=== PATIENT | female | born 1980 | race Caucasian/White ===

== ENCOUNTER 2019-05-19 10:47 | Inpatient (IN) | payer BC, OTHER ==
[2019-05-16 11:48] VITALS: BMI 27.6
[2019-05-19] MEDS ORDERED: DEXAMETHASONE SOD PHOSPHATE/PF 10 MG/ML SDV ONE (12:57)
[2019-05-19] MEDS ORDERED: BUPIVACAINE HCL/PF 0.5% (5 MG/ML) 30 ML VIAL IJ ONE (12:58)
[2019-05-19] MEDS ORDERED: DEXAMETHASONE SOD PHOSPHATE 4 MG/1 ML VIAL ONE (13:21)
[2019-05-19] MEDS ORDERED: PROPOFOL 0 ML ONE (13:21)
[2019-05-19] MEDS ORDERED: MIDAZOLAM HCL 2 MG/2 ML SINGLE DOSE VIAL ONE ×3 (13:21→13:44)
[2019-05-19] MEDS ORDERED: ROCURONIUM BROMIDE 50 MG/5 ML SYRINGE ONE ×2 (13:22→13:56)
--- NOTE | 2019-05-19 13:31 | HP ---
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: Alzheimer's, CVA, Dementia, Migraine, Multiple Sclerosis, Peripheral Neuropathy, Parkinson's, Seizure, Syncope, TIA, Vertigo, Other Cardiovascular: No: AFIB, Aneurysm, Aortic Insufficiency, Aortic Stenosis, CAD, CHF, Deep Vein Thrombosis, HTN, Hyperlipdemia, AL, Mitral Insufficiency, Mitral Stenosis, Murmur, Pulmonary Hypertension, Other Pulmonary: No: Asthma, Bronchitis, Cancer, COPD, O2 Dependent, Pneumonia, Previously Intubated, Pulmonary Embolus, Pulmonary Fibrosis, Sleep Apnea, Other Gastrointestinal: No: Ascites, Cancer, Constipation, Crohn's Disease, Diverticulitis, Diverticulosis, Esophageal Varices, Gastritis, GERD, GI Bleed, Hemorrhoids, Hiatal Hernia, Inflamatory Bowel Disease, Irritable Bowel Disease, Pancreatitis, Peptic Ulcer Disease, Ulcerative Colitis, Other Hepatobiliary: No: Cirrhosis, Cholelithiasis, Cholecystitis, Choledocholithiasis , Hepatitis A, Hepatitis B, Hepatitis C, Other Renal/: No: Renal Failure, Renal Inusuff, BPH, Cancer, Hematuria, Hemodialysis , Neurogenic Bladder, Renal Calculi, UTI, Other Reproductive: No: Ectopic , Endometriosis, Fibroids, PID, Polycystic Ovary Syndrome, Postmenopausal, Other ...LMP: 04/30/19 ...: No Heme/Onc: No: Anemia, B12 Deficiency, Bleeding Disorder, Cancer, Current Chemotherapy, Current Radiation Therapy, Hemochromatosis, Hypercoaguable State, Myeloproliferative Synd, Sickle Cell Disease, Sickle Cell Trait, Thrombocytopenia, Other Infectious Disease: No: AIDS, C-Diff, Herpes Zoster, HIV, MRSA, STD's, Tuberculosis, VREF, Other Psych: No: Addictions, Anxiety, Bipolar, Depression, Panic, Psychosis, Schizophrenia, Other Musculoskeletal: No: Bursitis, Chronic low back pain, Hemiparesis, Hemiplegia, Osteoarthritis, Paraplegia, Other Rheumatology: No: Fibromyalgia, Gout, Lupus, Rheumatoid Arthritis, Sarcoidosis, Vasculitis, Other ENT: No: Allergic Rhinitis, Sinusitis, Other Endocrine: No: Mathieu's Disease, Lauren's Disease, Diabetes Insipidus, Diabetes Mellitus, Hyperparathyroidism, Hyperthyroidism, Hypothyroidism, Osteopenia, SIADH, Other Dermatology: No: Basal Cell, Cellulitis, Eczema, Melanoma, Psoriasis, Squamous Cell, Other - Past Surgical History Past Surgical History: No: None, AAA Repair, AICD, Amputation, Appendectomy, Arthrosocopy, AV Fistula/Graft, Bariatric Surgery, Breast Biopsy, Bypass, CABG, Carotid Endarterectomy, Cataract Removal, Cholecystectomy, Colectomy, Colonoscopy, Colostomy, Craniotomy, , Cystectomy, Hernia Repair, Hysterectomy, Ileal Conduit, Ileosotomy, Joint Replacement, Kidney Transplant, Laminectomy, Liver Transplant, Mastectomy, Nephrectomy, Oopherectomy, Orchiectomy, Permanent Pacemaker, Prostatectomy, Splenectomy, Stent, Thoracotomy , TURP, Tonsillectomy, Tubal Ligation, Upper Endoscopy, Valve Replacement, Vasectomy, Vein Stripping/Ligation - Advance Directives Advance Directives: Yes: Living Will - Smoking History Smoking history: Current some day smoker Have you smoked in the past 12 months: Yes Aproximately how many cigarettes per day: 4 - Alcohol/Substance Use Hx Alcohol Use: Yes (S) History of Substance Use: reports: None - Social History Usual Living Arrangement: Yes: Alone Do you think of yourself as: Straight/Heterosexual ADL: Independent History of Recent Travel: No Home Medications - Allergies Allergies/Adverse Reactions: Allergies Allergy/AdvReac Type Severity Reaction Status Date / Time No Known Allergies Allergy Verified 05/16/19 11:48 - Home Medications Home Medications: Ambulatory Orders Ibuprofen [Motrin -] 800 mg PO TID 05/16/19 Family Medical History Family History: Denies Review of Systems - Review of Systems Constitutional: reports: No Symptoms Eyes: reports: No Symptoms HENT: reports: No Symptoms Neck: reports: No Symptoms Cardiovascular: reports: No Symptoms Respiratory: reports: No Symptoms Gastrointestinal: reports: No Symptoms Genitourinary: reports: No Symptoms Breasts: reports: No Symptoms Reported Musculoskeletal: reports: No Symptoms Integumentary: reports: No Symptoms Neurological: reports: No Symptoms Endocrine: reports: No Symptoms Hematology/Lymphatic: reports: No Symptoms Psychiatric: reports: No Symptoms Physical Examination Vital Signs: Vital Signs Temperature 98.4 F 05/19/19 12:57 Pulse Rate 75 05/19/19 12:57 Respiratory Rate 16 05/19/19 12:57 Blood Pressure 103/74 05/19/19 12:57 O2 Sat by Pulse Oximetry (%) 99 05/19/19 12:57 Constitutional: Yes: Well Nourished, No Distress, Calm Eyes: Yes: WNL, Conjunctiva Clear, EOM Intact HENT: Yes: WNL, Atraumatic, Normocephalic Neck: Yes: WNL, Supple, Trachea Midline Cardiovascular: Yes: WNL, Regular Rate and Rhythm Respiratory: Yes: WNL, Regular, CTA Bilaterally Gastrointestinal: Yes: WNL, Normal Bowel Sounds, Soft ...Rectal Exam: Yes: WNL Renal/: Yes: WNL Breast(s): Yes: WNL Musculoskeletal: Yes: WNL Extremities: Yes: WNL Edema: Yes Edema: LUE: 1+, RUE: 1+, LLE: 1+, RLE: 1+ Peripheral Pulses WNL: Yes Peripheral Pulses: Left Radial: 1+, Right Radial: 1+, Left Doralis Pedis: 1+, Right Dorsalis Pedis: 1+, Left Femoral: 1+, Right Femoral: 1+ Integumentary: Yes: WNL Wound/Incision: Yes: Clean/Dry, Well Approximated Neurological: Yes: WNL, Alert, Oriented ...Motor Strength: WNL Psychiatric: Yes: WNL, Alert, Oriented Assessment/Plan fibroid for myomectoy
[2019-05-19] MEDS ORDERED: VASOPRESSIN 20 UNITS/ML VIAL IV ONE (13:41)
[2019-05-19] MEDS ORDERED: PROPOFOL 20 ML ONE (13:56)
[2019-05-19] MEDS ORDERED: SUCCINYLCHOLINE CHLORIDE 200 MG/10 ML SYRINGE ONE (13:56)
[2019-05-19] MEDS ORDERED: ceFAZolin SODIUM 1 GM VIAL ONE (14:06)
[2019-05-19] MEDS ORDERED: ceFAZolin SODIUM 1 GM VIAL IVPB ONE (14:08)
[2019-05-19] MEDS ORDERED: NEOSTIGMINE METHYLSULFATE 0.5 MG/ML - 10 ML MDV ONE (14:39)
--- NOTE | 2019-05-19 16:40 | PN ---
Progress Note (short form) - Note Progress Note: I assisted Dr. Mitchell at multiple myomectomies for the entirety of the case.
[2019-05-19] MEDS ORDERED: ONDANSETRON 4 MG/2 ML VIAL IVPUSH PRN (16:44)
[2019-05-19] MEDS ORDERED: LACTATED RINGERS SOLUTION 1,000 ML IV SCH (16:45)
[2019-05-19] MEDS ORDERED: ONDANSETRON 4 MG/2 ML VIAL IVPUSH ONE (16:55)
[2019-05-19] MEDS ORDERED: ACETAMINOPHEN 325 MG TABLET (FP) PO PRN (17:10)
[2019-05-19] MEDS ORDERED: oxyCODONE HCL 5 MG TABLET PO PRN (17:10)
--- NOTE | 2019-05-19 17:21 | OP ---
Operative Note - Note: Operative Date: 05/19/19 Pre-Operative Diagnosis: mulitple fibroids Operation: myomectomies Findings: 6 fibroids removed Post-Operative Diagnosis: Same as Pre-op Surgeon: Marin Mitchell Quality Systems Technician: Bassem Nascimento Anesthesiologist/DOOR CUTTER: Brionna Garces Anesthesia: General Estimated Blood Loss (mls): 500 (cavities entetred, , will do c section ) Operative Report Dictated: Yes
[2019-05-19] MEDS ORDERED: ACETAMINOPHEN INJECTION 100 ML IVPB ONE (17:32)
[2019-05-19] MEDS ORDERED: ACETAMINOPHEN 1000 MG/100 ML VIAL (NON FORMULARY) IVPB ONE (17:38)
[2019-05-19] MEDS ORDERED: CEFAZOLIN 2 GM in DEXTROSE 5%-WATER - 100 ML IVPB SCH (18:00)
[2019-05-19] MEDS: oxyCODONE HCL 5 MG TABLET PO PRN (20:07)
[2019-05-19] MEDS: IBUPROFEN 800 MG/8 ML IJ IVPB PRN (22:17)
[2019-05-19] MEDS ORDERED: CEFAZOLIN 2 GM/D5W 2 GM/50 ML ML IVPB SCH (22:59)
[2019-05-20] MEDS: oxyCODONE HCL 5 MG TABLET PO PRN ×5 (01:26→20:10)
[2019-05-20] MEDS ORDERED: PT OWN MED DRAWER 7, Y5N ONE (06:44)
--- NOTE | 2019-05-20 13:23 | PN ---
Progress Note (short form) - Note Progress Note: pod # 1 , doing well, no complaints, vss, no vag bleeding, wound look dry and clean, consider dc pt home tomorrow
[2019-05-20 14:06] LABS: HEMATOCRIT 31.8 % (32.4-45.2); HEMOGLOBIN 10.5 GM/dL (10.7-15.3); MCH 27.1 pg (25.7-33.7); MCHC 32.9 g/dl (32.0-36.0); MEAN CELL VOLUME 82.4 fl (80-96); MEAN PLT VOLUME 8.7 fl (7.5-11.1); PLATELET COUNT 254 K/MM3 (134-434); RBC 3.87 M/mm3 (3.60-5.2); RDW 14.2 % (11.6-15.6); WHITE BLOOD COUNT 15.3 K/mm3 (4.0-10.0)
[2019-05-20] MEDS: IBUPROFEN 800 MG/8 ML IJ IVPB PRN (14:12)
[2019-05-20] MEDS ORDERED: MAGNESIUM HYDROX 2400MG/30ML ORAL SUSPENSION 30 ML CUP PO PRN (16:29)
[2019-05-21] MEDS: oxyCODONE HCL 5 MG TABLET PO PRN ×5 (00:05→22:14)
[2019-05-21] MEDS: IBUPROFEN 600 MG TABLET (FP) PO PRN (04:30)
--- NOTE | 2019-05-21 16:15 | PATH ---
Surgical Pathology Report Patient Name: ARGENTINA ESCUDERO Med. Rec. #: [id number] /Age/Gender: 1980 (Age: 39) / F Account: [id number] Location: [facility] MED/SURG Taken: 05/19/2019 Received: 05/20/2019 Reported: 05/21/2019 Physicians: Marin Mitchell MD Specimen(s) Received UTERUS, MYOMAS Clinical History Fibroids Final Diagnosis UTERUS, MYOMAS, ABDOMINAL MYOMECTOMY: 270 G, LEIOMYOMA(TA), FOCALLY INVOLVED BY ADENOMYOSIS. Electronically Signed Kiya Garcia M.D. Gross Description Received in formalin labeled "myoma of uterus," is a 270 g aggregate of 7 montez, firm to rubbery nodules ranging from 1.2-8.5 cm in greatest dimension. One of the smaller nodules displays a focus of hemorrhage containing brown blood. The remaining cut surfaces are montez and rubbery with whorled and cerebriform architecture. Fire Protection Designer sections are submitted in 9 cassettes as follows: 1-2-fibroid with focus of hemorrhage; 3-5-smaller fibroids; 6-9-largest fibroid. DL/05/20/2019 saudi05/20/2019
--- NOTE | 2019-05-21 21:04 | PN ---
Progress Note (short form) - Note Progress Note: pod # 2 , vss, afebrile, cbc 31.5 hemoglobin, encourage to ambulate, no vag bleeding, dc pt home tomorrow.
--- NOTE | 2019-05-21 21:08 | DS ---
Physical Examination Vital Signs: Vital Signs Temperature 98.3 F 05/21/19 14:00 Pulse Rate 85 05/21/19 14:00 Respiratory Rate 20 05/21/19 14:00 Blood Pressure 124/56 L 05/21/19 14:00 O2 Sat by Pulse Oximetry (%) 100 05/19/19 18:30 Constitutional: Yes: Well Nourished, No Distress, Calm Eyes: Yes: WNL, Conjunctiva Clear, EOM Intact HENT: Yes: WNL, Atraumatic, Normocephalic Neck: Yes: WNL, Supple, Trachea Midline Cardiovascular: Yes: WNL, Regular Rate and Rhythm Respiratory: Yes: WNL, Regular, CTA Bilaterally Gastrointestinal: Yes: WNL, Normal Bowel Sounds, Soft ...Rectal Exam: Yes: WNL Renal/: Yes: WNL Breast(s): Yes: WNL Musculoskeletal: Yes: WNL Extremities: Yes: WNL Edema: No Peripheral Pulses WNL: Yes Integumentary: Yes: WNL Wound/Incision: Yes: Clean/Dry, Well Approximated Neurological: Yes: WNL, Alert, Oriented ...Motor Strength: WNL Psychiatric: Yes: WNL, Alert, Oriented Labs: CBC, BMP 05/20/19 13:48 Discharge Summary Problems reviewed: Yes Reason For Visit: FIBROIDS Procedures: Principal: myomectomies Other Procedures: none Hospital Course: uneventful Health Concerns: none Plan of Treatment: oob as much as possible Condition: Good - Instructions Diet, Activity, Other Instructions: regular , routine post operative care Disposition: HOME - Home Medications Comprehensive Discharge Medication List: Ambulatory Orders Ibuprofen [Motrin -] 800 mg PO TID 05/16/19 Prescription Drug Monitoring Program (I-STOP) results: I-STOP reviewed and no issues identified
[2019-05-22] MEDS: oxyCODONE HCL 5 MG TABLET PO PRN ×3 (02:02→10:32)
[2019-05-22] MEDS ORDERED: INSULIN (NOVOLOG) ASPART 100 UNITS/ML 10ML VIAL ONE (06:33)
[2019-05-22 06:42] VITALS: TEMP 98.8
[2019-05-22] MEDS: IBUPROFEN 600 MG TABLET (FP) PO PRN (13:15)
[2019-05-22 15:24] VITALS: BP 115/71; PULSE 81
--- NOTE | 2019-05-22 17:18 | OP ---
DATE OF OPERATION: 05/19/2019 PREOPERATIVE DIAGNOSIS: Multiple fibroid uterus. POSTOPERATIVE DIAGNOSIS: Multiple fibroid uterus; 6 fibroid uterus. PROCEDURE: Myomectomies. SURGEON: Marin Mitchell MD DIRECT SERVICE PROVIDER: Bassem Nascimento MD ANESTHESIOLOGIST: Brionna Garces MD ANESTHESIA: General. BLOOD LOSS: About 500 mL. PATHOLOGY: Fibroids. INDICATION: A 39-year-old, female patient with about a [id number] fibroid uterus that has been confirmed by sonogram, with a history of severe pelvic pain and severe menorrhagia. The patient has seen other doctors before, and was seen in urgent care before, and the ER before, and finally wants these fibroids removed. The patient was scheduled for today for a myomectomy. DESCRIPTION OF PROCEDURE: Patient was taken to the OR and placed on the operating table in supine position. After general anesthesia was obtained, the patient's abdomen and pelvis were prepped and draped in the usual sterile manner. A Pfannenstiel incision was made. Incision was made through the skin and subcutaneous tissue. Then, the fascia was nicked in the midline and the fascia extended bilaterally. Intraperitoneal cavity was entered. At this time, we see a large fibroid, which is about nasir size, which is about 6 x 8 cm, on the anterior-fundus part of the uterus. It looks necrotic. It is almost subserosal, invading into the intramural muscle, so it is submucosal fibroid, and so that one was removed. Pitressin was injected and the fibroid was removed. We reconstructed the cavity. At this time, the intrauterine cavity was not entered at this point. So, then, we proceeded to another large one, which is right by the posterior part of the uterus, a little bit lower then fundus, the lower midpart of the uterus in the posterior part. So, that is an intramural type of a fibroid. That is about 4 x 4 cm-size of an intramural fibroid, we removed from the posterior part, and the cavity was reconstructed. Good hemostasis and did not enter into the intramural cavity of the uterus. At this time, we proceeded to another. It is almost right next to the fallopian tubes and very adjacent to the broad ligament. This time, we removed another intramural fibroid. This is about 3 x 3 cm. So, we removed the intramural fibroid 3 cm from the right, almost by the round ligament area, by the broad ligament area. This one probably into the intrauterine cavity, but hemostasis was obtained. A little bit of slight difficulty obtaining hemostasis at this part because it is close to the broad ligament, but good hemostasis was obtained. We suggest a for future . Both ovaries looked normal. The left tube was normal. The right tube was normal; however, it was very adjacent to the fibroid which was removed. We might consider tubal patency test in the future because this might be obstructed by the fibroid before. So, after these 3 large fibroids were removed, we removed another small one, a 2 x 3-cm approximately intramural fibroid on the lower segment area. The fibroid was removed at the low-transverse segment area of the uterus intramurally. Then, we proceeded to another two more small ones, 1 x 1 cm, almost subserosal type of a fibroid we removed. All hemostasis was obtained, after all that procedure. Once again, about six fibroids were removed. Good hemostasis was obtained. We placed Interceed and SNoW on top of the incision site to prevent scar tissue and to obtain hemostasis reason and good hemostasis. All the instruments were correct, so we closed peritoneum, we closed the fascia, and we closed the skin. The patient tolerated procedure well. Was awakened from general anesthesia. Was transferred to the recovery room in stable condition. A Armstrong was inserted after the procedure and there was clear urine. No complications. Patient transferred to recovery room in stable condition. MD JOAQUINA DIGGS/[id number]
== END 2019-05-22 15:52 | disposition home or self-care (01) | DRG 743 ==
LOC: JSAMEDAYSX 12:18 → EDSTATUS 14:00 → J8W 18:23
PROVIDERS: ADMIT Obstetrics & Gynecology; ATTEND Obstetrics & Gynecology
PROC: 0UB90ZZ Excision of Uterus, Open Approach (ICD-10-PCS; principal; 2019-05-19 14:13)
DX: D25.1 Intramural leiomyoma of uterus (principal); N80.0 Endometriosis of uterus; N92.0 Excessive and frequent menstruation with regular cycle
CPT/HCPCS: 36415; 85027; 86850; 86900; 86901; 88305-TC; 94760; J0131